=== PATIENT | male | born 1980 | race Caucasian/White ===

== ENCOUNTER 2018-04-29 13:51 | Inpatient (IN) | payer MEDICAID, OTHER ==
[~2018-04-29] VITALS: Ht 167.6 cm; Wt 113.4 kg
[2018-04-29 14:01] VITALS: BP 102/52
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
--- NOTE | 2018-04-29 15:55 | NUR ---
PT TAKEN IN WHEELCHAIR TO BED 9
[2018-04-29] MEDS ORDERED: NACL 0.9% 1,000 ML IV ONE ×2 (16:20→19:45)
[2018-04-29] MEDS ORDERED: NACL 0.9% 1,000 ML IV SCH (16:20)
--- NOTE | 2018-04-29 17:07 | NUR ---
PT TAKEN TO CT IN [place]
[2018-04-29 17:53] LABS: BASOPHILS % (AUTO) 0.6 % (0.0-2.0); EOSINOPHILS # (AUTO) 0.3 K/uL (0-0.4); EOSINOPHILS % (AUTO) 3.6 % (0.0-4.0); HEMOGLOBIN 13.7 g/dL (12.0-18.0); LYMPHOCYTES # (AUTO) 2.5 K/uL (2.0-11.5); LYMPHOCYTES % (AUTO) 30.1 % (20.5-51.1); MEAN CORPUSCULAR HEMOGLOBIN 30 pg (27-31); MEAN CORPUSCULAR HGB CONC 34 g/dL (33-37); MEAN CORPUSCULAR VOLUME 88.1 fL (80-94); MONOCYTES # (AUTO) 0.5 K/uL (0.8-1.0); MONOCYTES % (AUTO) 6.4 % (1.7-9.3); NEUTROPHILS # (AUTO) 4.9 K/uL (1.8-7.7); NEUTROPHILS % (AUTO) 59.3 % (42.2-75.2); PLATELET COUNT (AUTO) 216 K/uL (140-450); RED BLOOD CELL COUNT(AUTO) 4.54 MIL/uL (4.20-6.10); RED CELL DISTRIBUTION WIDTH 13.3 % (11.6-13.7); WHITE BLOOD COUNT (AUTO) 8.2 K/uL (4.8-10.8)
[2018-04-29 18:19] LABS: SALICYLATE < 2.8 mg/dL (2.8-20.0)
[2018-04-29 18:20] LABS: ACETAMINOPHEN < 0.5 ug/ml (10-30)
[2018-04-29 18:27] LABS: ANION GAP 10.5 (8-16); CARBON DIOXIDE 30.1 mmol/L (21-32); POTASSIUM 3.6 mmol/L (3.5-5.1)
[2018-04-29 18:28] LABS: ALBUMIN 3.4 g/dL (3.4-5.0); CREATININE 0.6 mg/dL (0.7-1.3); TOTAL BILIRUBIN 0.7 mg/dL (0.0-1.0)
--- NOTE | 2018-04-29 18:30 | NUR ---
PT SLEEPING, STATED HE STILL FELT TIRED. BEDSIDE MONITOR SHOWS SR, VITALS STABLE AT THIS MOMENT.
[2018-04-29 18:39] LABS: PROTHROMBIN TIME 11.1 secs (10.8-13.4)
[2018-04-29 19:01] LABS: APPEARANCE,URINE CLEAR (CLEAR); BILIRUBIN,URINE NEGATIVE (NEGATIVE); BLOOD, URINE NEGATIVE (NEGATIVE); COLOR,URINE YELLOW (YELLOW); LEUKOCYTE ESTERASE ,URINE NEGATIVE (NEGATIVE); NITRITE, URINE NEGATIVE (NEGATIVE); UGLUCOSE 1+ (NEGATIVE)
--- NOTE | 2018-04-29 19:07 | NUR ---
REPORT GIVEN TO YENNY GONZALEZ.
[2018-04-29 19:08] LABS: BARBITURATE, URINE NEG. ng/ml (NEG <=200); BENZODIAZEPINE, URINE NEG. ng/mL (NEG <=200); CANNABINOID, URINE POS. ng/mL (NEG <=50); COCAINE, URINE NEG. ng/mL (NEG <=300); OPIATE, URINE NEG. ng/mL (NEG <=2000); PHENCYCLIDINE SCREEN,URINE NEG. ng/mL (NEG <=25)
--- NOTE | 2018-04-29 19:30 | NUR ---
PATIENT RESTING AT THIS TIME. NO SIGNS OF DISTRESS.
--- NOTE | 2018-04-29 20:21 | NUR ---
Patient will be admitted to care of DR. LOVELL. Admited to M/S. Will go to room 123A. Belongings list completed. Report to KELLY GONZALEZ.
[2018-04-29 20:30] VITALS: BP 106/65
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
--- NOTE | 2018-04-29 21:20 | NUR ---
PAGED DR CORDERO PARTS CASTING MACHINE OPERATOR. WILL AWAIT FOR CALL BACK. Addendum: 04/29/18 at 5717 by Sarita Leon RN NOTES FOR [id number]
--- NOTE | 2018-04-29 21:23 | NUR ---
SPOKE TO DR CORDERO REGARDING PT'S ADDITIONAL ORDERS. Addendum: 04/29/18 at 9207 by Sarita Leon RN NOTES FOR [id number]
[2018-04-29] MEDS ORDERED: METF500T PO (22:24)
[2018-04-29] MEDS ORDERED: INSULIN LISPRO SLIDING SCALE 100 UNITS/ML VIAL SUBQ PRN (22:30)
[2018-04-29] MEDS ORDERED: ACETAMINOPHEN 325 MG TAB PO PRN (22:30)
[2018-04-29] MEDS ORDERED: DEXTROSE 50% 50 ML SYR IVP PRN (22:30)
[2018-04-29] MEDS ORDERED: ONDANSETRON 4 MG/2 ML VIAL IVP PRN (22:30)
--- NOTE | 2018-04-29 22:40 | NUR ---
BLOOD SUGAR CHECKED:118. NO COVERAGE NEEDED. SNACKS PROVIDED PER REQUEST.
[2018-04-29] MEDS: NACL 0.9% 1,000 ML IV SCH (22:42)
[2018-04-30] MEDS: NACL 0.9% 1,000 ML IV SCH ×2 (03:52→12:14)
[2018-04-30 04:00] VITALS: BP 111/70
--- NOTE | 2018-04-30 04:00 | NUR ---
SEEN PT SLEEPING SOUNDLY BUT EASILY AROUSABLE. VITAL SIGNS CHECKED. PT DENIES ANY DISCOMFORT. SAFETY REINFORCED. WILL CONTINUE TO MONITOR.
[2018-04-30] MEDS: BLOOD GLUCOSE MONITORING 1 DEV DEV FS SCH ×3 (06:33→17:29)
--- NOTE | 2018-04-30 07:20 | NUR ---
RECEIVED BEDSIDE REPORT FROM TICKER MAINTAINER NURSE. PATIENT IS SLEEPING. NO SIGNS OF DISTRESS ON ROOM AIR. PATIENT ABLE TO AMBULATE. SKIN IS INTACT. IV ON L HAND 20G INFUSING NS AT 125. IV IS CLEAN, DRY AND INTACT. BED IN LOW POSITION. CALL LIGHT WITHIN REACH. WILL CONTINUE TO MONITOR THE PATIENT
[2018-04-30 08:00] VITALS: BP 121/60
--- NOTE | 2018-04-30 09:00 | NUR ---
PATIENT IS SLEEPING. NO SIGNS OF DISTRESS ON ROOM AIR. BED IN LOW POSITION. CALL LIGHT WITHIN REACH. WILL CONTINUE TO MONITOR THE PATIENT
--- NOTE | 2018-04-30 10:43 | NUR ---
PATIENT HAS BEEN SCREENED AND CATEGORIZED HIGH NUTRITION RISK. PATIENT WILL BE SEEN WITHIN 1-2 DAYS OF ADMISSION. 04/30/18 05/01/[address]
--- NOTE | 2018-04-30 10:48 | NUR ---
CM NOTE INITIAL REVIEW FAXED TO [facility] [phone] MELINDA # [phone]
--- NOTE | 2018-04-30 11:30 | NUR ---
PATIENT SITTING UP COLORING. NO SIGNS OF DISTRESS ON ROOM AIR. BED IN LOW POSITION. CALL LIGHT WITHIN REACH. WILL CONTINUE TO MONITOR THE PATIENT
--- NOTE | 2018-04-30 12:14 | NUR ---
ADMINISTERED IVF. IV IS CLEAN, DRY AND INTACT. PATIENT EATING LUNCH. NO COMPLAINTS AT THIS TIME. WILL CONTINUE TO MONITOR. BED IN LOW POSITION. CALL LIGHT WITHIN REACH
--- NOTE | 2018-04-30 13:18 | NUR ---
PATIENT AMBULATED TO THE RESTROOM TO HAVE A BM. NO SIGNS OF DISTRESS. WILL CONTINUE TO MONITOR THE PATIENT
--- NOTE | 2018-04-30 15:00 | NUR ---
PATIENT IS SLEEPING. NO SIGNS OF DISTRESS. WILL CONTINUE TO MONITOR
[2018-04-30 16:00] VITALS: BP 121/59
--- NOTE | 2018-04-30 17:00 | NUR ---
PATIENT TAKING A SHOWER AND REQUESTING FOOD BEFORE DISCHARGE. PATIENT IN THE SHOWER. WILL GET HIM A SANDWICH
--- NOTE | 2018-04-30 18:05 | NUR ---
EDUCATED PATIENT ON DISEASE PROCESS, ABN S/SX, WHEN TO GO TO THE NEAREST ER, FOLLOW UP W PCP, EDUCATED TO CONTINUE HOME MEDS, GAVE A BUS PASS, VOLUNTEER SPECIALIST GAVE [facility] INFO. PATIENT SAID HE WILL GO TO THE ONE IN [place]. PATIENT VERBALIZED UNDERSTANDING. SIGNED ALL PAPERWORK. IV REMOVED, IV TIP IS INTACT. ID BANDS REMOVED. PATIENT LEFT WALKING IN STABLE CONDITION.
== END 2018-04-30 18:05 | disposition home or self-care (01) | DRG 815 ==
LOC: MED 13:51 → MTU 19:32
PROVIDERS: ADMIT Internal Medicine Pulmonary Disease; ATTEND Internal Medicine Pulmonary Disease
DX: T67.5XXA Heat exhaustion, unspecified, initial encounter (principal); F15.10 Other stimulant abuse, uncomplicated; E86.0 Dehydration; E11.9 Type 2 diabetes mellitus without complications; F31.9 Bipolar disorder, unspecified
CPT/HCPCS: 36415; 70450; 71045; 80053; 80305; 81003; 82150; 82550; 82948; 83690; 84484; 85025; 85610; 85730; 87081; 93005; 96360; 96361; 99285; C1758; G0480; G0482; J1815; J7030; Q0092

== ENCOUNTER 2018-07-27 10:47 | Inpatient (IN) | payer OTHER ==
[~2018-07-27] VITALS: Ht 167.6 cm; Wt 128.8 kg
[2018-07-27 10:47] VITALS: BP 112/60
[~2018-07-27 10:47] MED LIST: METF500T PO
[2018-07-27] MEDS ORDERED: NACL 0.9% 1,000 ML IV ONE (10:53)
[2018-07-27 11:22] LABS: BASOPHILS # (AUTO) 0.1 K/uL (0.00-0.22); BASOPHILS % (AUTO) 1.2 % (0.0-2.0); EOSINOPHILS # (AUTO) 0.3 K/uL (0-0.4); EOSINOPHILS % (AUTO) 2.9 % (0.0-4.0); HEMATOCRIT 41.5 % (36-52); HEMOGLOBIN 14.1 g/dL (12.0-18.0); LYMPHOCYTES % (AUTO) 21.6 % (20.5-51.1); MEAN CORPUSCULAR HEMOGLOBIN 30 pg (27-31); MEAN CORPUSCULAR HGB CONC 34 g/dL (33-37); MEAN CORPUSCULAR VOLUME 87.4 fL (80-94); MONOCYTES # (AUTO) 0.6 K/uL (0.8-1.0); MONOCYTES % (AUTO) 6.3 % (1.7-9.3); NEUTROPHILS # (AUTO) 6.2 K/uL (1.8-7.7); PLATELET COUNT (AUTO) 242 K/uL (140-450); RED BLOOD CELL COUNT(AUTO) 4.75 MIL/uL (4.20-6.10); WHITE BLOOD COUNT (AUTO) 9.1 K/uL (4.8-10.8)
[2018-07-27 11:29] LABS: ANION GAP 10.9 (8-16); CARBON DIOXIDE 29.8 mmol/L (21-32); CHLORIDE 102 mmol/L (98-107); CREATININE 0.8 mg/dL (0.7-1.3); GFR ARICAN-AMERICAN 140 mL/min (>90); GLUCOSE 159 mg/dL (74-106); POTASSIUM 3.7 mmol/L (3.5-5.1); SODIUM SERUM 139 mmol/L (136-145); UREA NITROGEN, BLOOD 13 mg/dL (7-18)
[2018-07-27 11:35] LABS: ALBUMIN 3.7 g/dL (3.4-5.0); ASPARTATE AMINOTRANSFERASE 18 U/L (15-37); TOTAL BILIRUBIN 0.7 mg/dL (0.0-1.0)
[2018-07-27 11:40] LABS: ACETAMINOPHEN < 0.5 ug/ml (10-30); SALICYLATE < 2.8 mg/dL (2.8-20.0)
[2018-07-27 11:59] LABS: BARBITURATE, URINE NEG. ng/ml (NEG <=200); BENZODIAZEPINE, URINE NEG. ng/mL (NEG <=200); CANNABINOID, URINE NEG. ng/mL (NEG <=50); COCAINE, URINE NEG. ng/mL (NEG <=300); OPIATE, URINE NEG. ng/mL (NEG <=2000); PHENCYCLIDINE SCREEN,URINE NEG. ng/mL (NEG <=25)
[2018-07-27 12:25] LABS: APPEARANCE,URINE CLEAR (CLEAR); BILIRUBIN,URINE NEGATIVE (NEGATIVE); BLOOD, URINE NEGATIVE (NEGATIVE); COLOR,URINE YELLOW (YELLOW); UGLUCOSE NEGATIVE (NEGATIVE)
[2018-07-27 12:26] LABS: LEUKOCYTE ESTERASE ,URINE NEGATIVE (NEGATIVE); NITRITE, URINE NEGATIVE (NEGATIVE); RBC,URINE NONE SEEN /HPF (0-5); WBC,URINE 0-5 (RARE) /HPF (0-5)
[2018-07-27] MEDS ORDERED: MORPHINE SULFATE 4 MG/ML SYR IVP PRN (14:35)
[2018-07-27] MEDS ORDERED: ONDANSETRON 4 MG/2 ML VIAL IVP PRN (14:35)
[2018-07-27] MEDS ORDERED: ACETAMINOPHEN 325 MG TAB PO PRN (14:35)
[2018-07-27 15:45] VITALS: BP 107/77
[2018-07-27] MEDS: NACL 0.9% 1,000 ML IV SCH (15:59)
[2018-07-27] MEDS: BLOOD GLUCOSE MONITORING 1 DEV DEV FS SCH ×2 (16:14→21:16)
[2018-07-27] MEDS ORDERED: INFLUENZA VIRUS VACCINE QUAD 0.5 ML SYR IMVAC PRN (18:00)
[2018-07-27] MEDS: INSULIN LISPRO SLIDING SCALE 100 UNITS/ML VIAL SUBQ PRN (21:14)
[2018-07-28] VITALS: BP 125/61
[2018-07-28] MEDS: NACL 0.9% 1,000 ML IV SCH ×2 (02:00→10:31)
[2018-07-28] MEDS: BLOOD GLUCOSE MONITORING 1 DEV DEV FS SCH ×2 (06:00→11:30)
[2018-07-28 07:35] LABS: BASOPHILS # (AUTO) 0.1 K/uL (0.00-0.22); BASOPHILS % (AUTO) 1.1 % (0.0-2.0); EOSINOPHILS # (AUTO) 0.2 K/uL (0-0.4); EOSINOPHILS % (AUTO) 3.4 % (0.0-4.0); HEMATOCRIT 41.7 % (36-52); HEMOGLOBIN 14.3 g/dL (12.0-18.0); LYMPHOCYTES # (AUTO) 1.5 K/uL (2.0-11.5); LYMPHOCYTES % (AUTO) 20.4 % (20.5-51.1); MEAN CORPUSCULAR HEMOGLOBIN 30 pg (27-31); MEAN CORPUSCULAR HGB CONC 34 g/dL (33-37); MEAN CORPUSCULAR VOLUME 87.4 fL (80-94); MONOCYTES # (AUTO) 0.4 K/uL (0.8-1.0); MONOCYTES % (AUTO) 5.2 % (1.7-9.3); NEUTROPHILS # (AUTO) 5.1 K/uL (1.8-7.7); NEUTROPHILS % (AUTO) 69.9 % (42.2-75.2); PLATELET COUNT (AUTO) 220 K/uL (140-450); RED BLOOD CELL COUNT(AUTO) 4.78 MIL/uL (4.20-6.10); RED CELL DISTRIBUTION WIDTH 13.1 % (11.6-13.7); WHITE BLOOD COUNT (AUTO) 7.2 K/uL (4.8-10.8)
[2018-07-28 08:01] LABS: ALBUMIN 3.1 g/dL (3.4-5.0); ANION GAP 11.1 (8-16); CARBON DIOXIDE 28.9 mmol/L (21-32); CREATININE 0.7 mg/dL (0.7-1.3); TOTAL BILIRUBIN 0.7 mg/dL (0.0-1.0)
[2018-07-28] MEDS ORDERED: ENOXAPARIN 40 MG/0.4 ML SYR SUBQ SCH (09:00)
[2018-07-28 09:19] VITALS: BP 112/68
[2018-07-28] MEDS: INSULIN LISPRO SLIDING SCALE 100 UNITS/ML VIAL SUBQ PRN (12:48)
== END 2018-07-28 16:00 | disposition home or self-care (01) | DRG 52 ==
LOC: MED 10:47 → MTU 14:34
PROVIDERS: ADMIT Hospitalist; ATTEND Hospitalist
DX: G93.40 Encephalopathy, unspecified (principal); E11.9 Type 2 diabetes mellitus without complications; F15.10 Other stimulant abuse, uncomplicated; Z79.84 Long term (current) use of oral hypoglycemic drugs
CPT/HCPCS: 36415; 70450; 71045; 80053; 80305; 81001; 82948; 84484; 85025; 87081; 96360; 99285; G0480; G0482; J1650; J1815; J7030; Q0092

== ENCOUNTER 2018-10-27 14:49 | Emergency (ER) | payer OTHER ==
[~2018-10-27] VITALS: Ht 167.6 cm; Wt 152.0 kg
--- NOTE | 2018-10-27 14:50 | NUR ---
PT [facility]AH [facility] [employer] FOR PREBOOK
[2018-10-27 14:51] VITALS: BP 130/58
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
[2018-10-27 16:00] VITALS: BP 128/86
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
== END 2018-10-27 16:00 | disposition home or self-care (01) ==
LOC: MED 14:49
DX: M25.561 Pain in right knee (principal); E11.9 Type 2 diabetes mellitus without complications; Z02.89 Encounter for other administrative examinations; Z79.84 Long term (current) use of oral hypoglycemic drugs; V89.2XXA Person injured in unspecified motor-vehicle accident, traffic, initial encounter; Y93.89 Activity, other specified; Y92.89 Other specified places as the place of occurrence of the external cause; Y99.8 Other external cause status
CPT/HCPCS: 99283

== ENCOUNTER 2019-04-30 09:13 | Emergency (ER) | payer OTHER ==
[~2019-04-30] VITALS: Ht 167.6 cm; Wt 129.3 kg
--- NOTE | 2019-04-30 09:15 | NUR ---
PATIENT BIBA TO BED 9 AT THIS TIME.
[2019-04-30 09:19] VITALS: BP 124/62
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
--- NOTE | 2019-04-30 09:30 | NUR ---
ACCU CHECK 193
[2019-04-30] MEDS ORDERED: IBUPROFEN 400 MG TAB PO ONE (09:55)
--- NOTE | 2019-04-30 09:55 | NUR ---
DR JEFFERSON AT BEDSIDE
--- NOTE | 2019-04-30 10:02 | NUR ---
XRAY AT BEDSIDE
--- NOTE | 2019-04-30 10:57 | NUR ---
NADR TO MOTRIN PO, PT SLEEPING IN BED. RR EVEN AND UNLABORED.
--- NOTE | 2019-04-30 11:18 | NUR ---
DR JEFFERSON RE-EVALUATING PT
--- NOTE | 2019-04-30 11:56 | NUR ---
[employer]ENS MEDIUM ORTHO SHOE APPLIED TO RIGHT FOOT BY KATE SALCIDO. DEMONSTRATED PROPER CRUTCH USE. PT VERBALIZES UNDERSTANDING.
[2019-04-30 12:07] VITALS: BP 128/65
--- NOTE | 2019-04-30 12:07 | NUR ---
Patient discharged with v/s stable. Written and verbal after care instructions given and explained. Patient alert, oriented and verbalized understanding of instructions. Ambulatory with CRUTCHES AND BOOT. All questions addressed prior to discharge. ID band removed. Patient advised to follow up with PMD REGARDING FRACTURE. Rx of METFORMIN HYDROCHLORIDE AND NAPROSYN given. Patient educated on indication of medication including possible reaction and side effects. Opportunity to ask questions provided and answered. PT STATES HIS FRIEND WILL PICK HIM UP. PT GIVEN HOMELESS MEAL, CUSTODIAL REFERRAL, HYGIENE PACKET, AND SIGNED HOMELESS CONSENT FORM.
== END 2019-04-30 12:07 | disposition home or self-care (01) ==
LOC: MED 09:13
DX: S92.424A Nondisplaced fracture of distal phalanx of right great toe, initial encounter for closed fracture (principal); G47.30 Sleep apnea, unspecified; R06.02 Shortness of breath; E11.9 Type 2 diabetes mellitus without complications; F17.210 Nicotine dependence, cigarettes, uncomplicated; F12.10 Cannabis abuse, uncomplicated; F15.10 Other stimulant abuse, uncomplicated; Z79.84 Long term (current) use of oral hypoglycemic drugs; W23.0XXA Caught, crushed, jammed, or pinched between moving objects, initial encounter; Y93.89 Activity, other specified; Y92.89 Other specified places as the place of occurrence of the external cause; Y99.8 Other external cause status
CPT/HCPCS: 73630; 99283; Q0092

== ENCOUNTER 2019-05-02 04:25 | Emergency (ER) | payer OTHER ==
[~2019-05-02] VITALS: Ht 170.2 cm; Wt 120.2 kg
[2019-05-02 04:25] VITALS: BP 146/85
[2019-05-02 04:30] VITALS: BP 146/85
--- NOTE | 2019-05-02 04:30 | NUR ---
38 Y/O M BIBA WITH C/O BILATERAL FOOT PAIN X1 DAY. AAOX4. PER PT "I'VE BEEN WALKING ALL DAY AND MY FEET HURT." +CMS. PEDAL PULSES PRESENT. PT SEEN YESTERDAY FOR SAME SYMPTOMS. PT HAS BOOT TO R FOOT ON. ERMD NOTIFIED OF PT STATUS. WILL CONTINUE TO MONITOR.
[2019-05-02] MEDS ORDERED: IBUPROFEN 800 MG TAB PO ONE (04:45)
== END 2019-05-02 04:55 | disposition home or self-care (01) ==
LOC: MED 04:25
DX: M79.671 Pain in right foot (principal); M79.672 Pain in left foot; E11.9 Type 2 diabetes mellitus without complications; G47.30 Sleep apnea, unspecified; Z79.84 Long term (current) use of oral hypoglycemic drugs
CPT/HCPCS: 99282

== ENCOUNTER 2019-05-07 18:55 | Emergency (ER) | payer OTHER ==
[~2019-05-07] VITALS: Ht 167.6 cm; Wt 129.3 kg
[2019-05-07 19:14] VITALS: BP 108/59
--- NOTE | 2019-05-07 19:14 | NUR ---
TO BED # 05 AMBULATORY
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
[2019-05-07] MEDS ORDERED: ACETAMINOPHEN EXTRA STRENGTH 500 MG TAB PO ONE (19:55)
[2019-05-07 20:44] VITALS: BP 131/79
== END 2019-05-07 20:44 | disposition home or self-care (01) ==
LOC: MED 18:55
DX: S92.424A Nondisplaced fracture of distal phalanx of right great toe, initial encounter for closed fracture (principal); M79.672 Pain in left foot; E11.9 Type 2 diabetes mellitus without complications; G47.30 Sleep apnea, unspecified; F17.210 Nicotine dependence, cigarettes, uncomplicated; Z79.84 Long term (current) use of oral hypoglycemic drugs; W50.1XXA Accidental kick by another person, initial encounter; Y93.84 Activity, sleeping; Y92.488 Other paved roadways as the place of occurrence of the external cause; Y99.8 Other external cause status
CPT/HCPCS: 73630; 99283; Q0092

== ENCOUNTER 2019-11-05 00:02 | Emergency (ER) | payer OTHER ==
[~2019-11-05] VITALS: Ht 167.6 cm; Wt 132.1 kg
[2019-11-05 00:10] VITALS: BP 128/74
--- NOTE | 2019-11-05 00:13 | NUR ---
TO LOBBY A/W BED AMBULATORY, HOMELESS
--- NOTE | 2019-11-05 01:54 | NUR ---
PT AMBULATED TO BED 12
--- NOTE | 2019-11-05 02:10 | NUR ---
38 YEAR OLD MALE BIBA FOR "FEELING COLD OUTSIDE." PATIENT STATES HE WANTS A MEDICAL EXAMINATION." PATIENT DOES NOT COMPLAIN OF SYMPTOMS. PATIENT DENIES CHEST PAIN, SOB, NAUSEA, VOMITTING, DIARRHEA. PATIENT AOX4, BREATHING EVEN AND UNLABORED. BED IN LOWEST POSITION, LOCKED, BED RAIL UPX1. ALLERGIES - NKA
[2019-11-05 03:00] VITALS: BP 125/73
--- NOTE | 2019-11-05 03:00 | NUR ---
Patient discharged with v/s stable. Written and verbal after care instructions about medical screening exam given and explained. Patient verbalized understanding. Ambulatory with steady gait. All questions addressed prior to discharge. Advised to follow up with PMD. Patient offered sandwitch, clothes appropriate for weather, pt denied homeless packet.
== END 2019-11-05 03:00 | disposition home or self-care (01) ==
LOC: MED 00:02
DX: R68.83 Chills (without fever) (principal); E11.9 Type 2 diabetes mellitus without complications; Z79.84 Long term (current) use of oral hypoglycemic drugs
CPT/HCPCS: 99283

== ENCOUNTER 2020-06-27 00:12 | Emergency (ER) | payer OTHER ==
[~2020-06-27] VITALS: Ht 167.6 cm; Wt 139.7 kg
[2020-06-27 00:14] VITALS: BP 146/91
[2020-06-27] MEDS ORDERED: cefTRIAXone 1,000 MG in LIDOCAINE MPF 1% 2.1 ML IM ONE (01:05)
[2020-06-27] MEDS ORDERED: LIDOCAINE MPF 1% 5 ML ONE (01:11)
[2020-06-27] MEDS ORDERED: cefTRIAXone 1,000 MG VIAL ONE (01:11)
[2020-06-27 02:14] VITALS: BP 113/54
== END 2020-06-27 02:15 | disposition home or self-care (01) ==
LOC: MED 00:12
DX: L03.116 Cellulitis of left lower limb (principal); E11.9 Type 2 diabetes mellitus without complications; F15.10 Other stimulant abuse, uncomplicated; Z79.84 Long term (current) use of oral hypoglycemic drugs
CPT/HCPCS: 96372; 99283; J0696; J2001